=== PATIENT | male | born 1975 | race Hispanic/Latino ===

== ENCOUNTER 2020-01-16 13:32 | Emergency (ER) | payer SELFPAY ==
[2020-01-16 14:02] LABS: #Eosinphils 0.1 thou/uL (0.0-0.7); #Lymphocytes 2.2 thou/uL (1.20-3.40); #Monocytes 1.1 thou/uL (0.11-0.59); #Neutrophils 8.9 thou/uL (1.40-6.50); %Basophils 0.3 % (0.0-1.0); %Eosinophils 0.8 % (0.0-10.0); %Lymphocytes 17.9 % (21.0-51.0); %Monocytes 8.7 % (0.0-10.0); %Neutrophils 72.3 % (42.0-75.0); Hemoglobin 15.8 g/dL (14.0-18.0); Mean Corpuscular Hemoglobin 29.7 pg (27.0-31.0); Mean Corpuscular Volume 92.8 fL (78.0-98.0); Mean Platelet Volume 8.6 fL (7.4-10.4); Platelet Count 204 thou/uL (130-400); RBC Distribution Width 12.3 % (11.5-14.5); Red Blood Cell (RBC) Count 5.33 mill/uL (4.70-6.10); White Blood Cell (WBC) Count 12.3 thou/uL (4.8-10.8)
[2020-01-16] MEDS ORDERED: Ketorolac Tromethamine 30 MG/ML VIAL ONE (14:10)
[2020-01-16 14:20] LABS: Bacteria/HPF 4+ HPF (None Seen); Bilirubin Negative (Negative); Blood, Urine 3+ (Negative); Clarity Extra Turbid (Clear); Glucose, Urine (Dipstick) Normal (Negative); Ketone, Urine 10 mg/dL (Negative); Leukocyte 500 Leu/uL (Negative); Nitrite 1+ (Negative); Protein, Urine (Dipstick) 200 mg/dL (Neg-Trace); RBC/HPF Greater than 50 HPF (0-3); Specific Gravity, Urine 1.015 (1.002-1.036); Squamous Epithelial None Seen HPF (0-3); Urobilinogen Normal mg/dL (Less than 2); WBC/HPF Greater than 50 HPF (0-3)
[2020-01-16 14:28] LABS: ALT (SGPT) 13 U/L (8-55); AST (SGOT) 19 U/L (5-34); Albumin 3.9 g/dL (3.5-5.0); Alkaline Phosphatase 70 U/L (40-110); Anion Gap 17 mmol/L (10-20); BUN (Urea Nitrogen) 12 mg/dL (8.9-20.6); Bilirubin, Total 1.1 mg/dL (0.2-1.2); Calc. Creatinine Clearance 0 mL/min (70-130); Carbon Dioxide 23 mmol/L (22-29); Chloride 99 mmol/L (98-107); Estimated GFR-MDRD Greater than 90; Globulin 3.9 g/dL (2.4-3.5); Glucose 103 mg/dL (70-105); Lipase 15 U/L (8-78); Potassium 3.9 mmol/L (3.5-5.1); Protein, Total 7.8 g/dL (6.0-8.3); Sodium 135 mmol/L (136-145)
[2020-01-16] MEDS ORDERED: Iopamidol-370 76% 500 ML 1 ML ONE (14:33)
--- NOTE | 2020-01-16 15:47 | CT ---
[id number] CT ABDOMEN AND PELVIS WITH IV CONTRAST: HISTORY: Left lower quadrant pain with hematuria and diarrhea. COMPARISON: None. FINDINGS: The lung bases are unremarkable. The liver demonstrates decreased attenuation compared to the spleen consistent with fatty infiltration. No calcified gallstones are seen. The spleen, pancreas, adrena l glands, and kidneys are normal. No free air or free fluid is seen in the abdomen or pelvis. There is a 14 mm left external iliac lym ph node. No aneurysmal dilatation of the abdominal aorta is seen. The small bowel loops are not abn ormally dilated. A normal-appearing appendix is present. The urinary bladder is not well distended. There is enhancement of the wall of the urinary bladder w ith suggestion of thickening and mild periarticular inflammatory change. There are degenerative rodriguez ges in the spine. There is a small fat-containing inguinal hernia, right larger than left. IMPRESSION: 1. Fatty liver. 2. Findings are suspicious for cystitis. POS: OFF
== END 2020-01-16 16:53 | disposition home or self-care (01) ==
LOC: ERS 13:32
DX: N30.01 Acute cystitis with hematuria (principal); I10 Essential (primary) hypertension; Z71.6 Tobacco abuse counseling; Z79.899 Other long term (current) drug therapy
CPT/HCPCS: 36415; 74177; 80053; 81003; 81015; 83605; 83690; 85025; 87077; 87086; 87186; 94760; 96365; 96375; 99406; J1885; Q9967